=== PATIENT | male | born 1955 | race Caucasian/White ===

== ENCOUNTER 2021-05-22 15:30 | Emergency (ER) | payer OTHER ==
[~2021-05-22] VITALS: Ht 188 cm; Wt 104.3 kg
[~2021-05-22 15:30] MED LIST: ALPR.5 PO; AMLO10 PO; ATEN25 PO; ATOR20 PO; Aspir 8181 MG PO; GABA300 PO; HYDACE10B PO; HYDPAM25 PO; Hydrochlorothia25 MG PO; K-Dur20 MEQ PO; LEVSOD50 PO; LISI20 PO; NAPR250 PO; Novolog100 UNIT/1; Prozac40 MG PO; TRAZ100 PO; ZESTORETIC 20-1 EAC1 PO
[2021-05-22 15:59] LABS: BASOPHILS PERCENT AUTO 1 % (0-2); EOSINOPHILS ABSOLUTE AUTO 0.12 K/mm3 (0.00-0.68); EOSINOPHILS PERCENT AUTO 1 % (0-6); Hematocrit 37.3 % (37.0-53.0); Hemoglobin 13.2 g/dL (13.5-17.5); IMMATURE GRAN ABSOLUTE AUTO 0.03 K/mm3 (0.00-0.10); IMMATURE GRAN PERCENT AUTO 0 % (0-1); LYMPHOCYTES PERCENT AUTO 16 % (21-46); MONOCYTES ABSOLUTE AUTO 1.04 K/mm3 (0.16-1.47); MONOCYTES PERCENT AUTO 12 % (4-13); Mean Corpuscular HGB 28.1 pg (26.0-34.0); Mean Corpuscular HGB Conc 35.4 g/dL (31.5-36.5); Mean Corpuscular Volume 79 fL (80-100); Mean Platelet Volume 12.6 fL (9.1-12.4); NEUTROPHILS ABSOLUTE AUTO 6.09 K/mm3 (1.96-9.15); NEUTROPHILS PERCENT AUTO 70 % (41-73); Platelet Count 288 K/mm3 (150-400); RDW Coefficient Variation 13.4 % (11.7-14.2); RDW Standard Deviation 38.9 fL (35.1-46.3); White Blood Cell Count 8.78 K/mm3 (4.00-11.30)
[2021-05-22 16:15] LABS: Albumin, Blood 4.2 g/dL (3.4-5.0); Albumin/Globulin Ratio 1.1 (0.8-1.8); Bilirubin, Total 1.1 mg/dL (0.1-1.0); Bun/Creatinine Ratio 14.4 (12.0-20.0); Calcium, Blood 8.9 mg/dL (8.5-10.1); Creatinine, Blood 1.6 mg/dL (0.60-1.20); Globulin, Blood 3.9 g/dL (2.2-4.0); Potassium, Blood 2.6 mmol/L (3.5-5.5); Total Protein, Blood 8.1 g/dL (6.4-8.2)
[2021-05-22 17:12] LABS: Appearance, Urine Clear (Clear); Bilirubin, Urine Neg (Neg); Blood, Urine Neg (Neg); Color, Urine Yellow (P-Yellow); Glucose Qualitative, Urine Neg (Neg); Ketones, Urine Neg (Neg); Leukocyte Esterase, Urine Neg (Neg); Nitrite, Urine Neg (Neg); Protein, Urine Neg (Neg); Urobilinogen, Urine NORM (Normal)
[2021-05-22] MEDS ORDERED: POTA20PAC PO (20:30)
== END 2021-05-22 20:53 | disposition home or self-care (01) ==
LOC: ER 15:30
PROVIDERS: Emergency Medicine
DX: R07.9 Chest pain, unspecified (principal); E87.6 Hypokalemia; R10.9 Unspecified abdominal pain; E11.9 Type 2 diabetes mellitus without complications; I10 Essential (primary) hypertension; E03.9 Hypothyroidism, unspecified; F17.210 Nicotine dependence, cigarettes, uncomplicated; Z79.82 Long term (current) use of aspirin
CPT/HCPCS: 74176; 76705; 80053; 81003; 82947; 83690; 85025; 96374; 99285-25; A9270; J2405; J3010

== ENCOUNTER 2021-05-27 23:07 | Emergency (ER) | payer OTHER ==
[~2021-05-27] VITALS: Ht 188 cm; Wt 104.3 kg
[~2021-05-27 23:07] MED LIST changes: +POTA20PAC PO
[2021-05-28 00:36] LABS: BASOPHILS ABSOLUTE AUTO 0.05 K/mm3 (0.00-0.23); BASOPHILS PERCENT AUTO 0 % (0-2); EOSINOPHILS PERCENT AUTO 0 % (0-6); Hematocrit 36.8 % (37.0-53.0); Hemoglobin 13.5 g/dL (13.5-17.5); IMMATURE GRAN ABSOLUTE AUTO 0.03 K/mm3 (0.00-0.10); IMMATURE GRAN PERCENT AUTO 0 % (0-1); LYMPHOCYTES ABSOLUTE AUTO 0.83 K/mm3 (0.84-5.20); LYMPHOCYTES PERCENT AUTO 6 % (21-46); MONOCYTES ABSOLUTE AUTO 1.01 K/mm3 (0.16-1.47); MONOCYTES PERCENT AUTO 7 % (4-13); Mean Corpuscular HGB 28.7 pg (26.0-34.0); Mean Corpuscular HGB Conc 36.7 g/dL (31.5-36.5); Mean Corpuscular Volume 78 fL (80-100); Mean Platelet Volume 11.8 fL (9.1-12.4); NEUTROPHILS ABSOLUTE AUTO 11.96 K/mm3 (1.96-9.15); NEUTROPHILS PERCENT AUTO 86 % (41-73); Platelet Count 340 K/mm3 (150-400); RDW Coefficient Variation 12.9 % (11.7-14.2); RDW Standard Deviation 36.7 fL (35.1-46.3); White Blood Cell Count 13.88 K/mm3 (4.00-11.30)
[2021-05-28 00:57] LABS: Alanine Aminotransfer (ALT/SGP 41 U/L (12-78); Albumin, Blood 4.4 g/dL (3.4-5.0); Albumin/Globulin Ratio 1.2 (0.8-1.8); Alk Phos 77 U/L (50-136); Anion Gap 9 mmol/L (6-16); Aspartate Aminotrans (AST/SGOT 27 U/L (12-37); Bilirubin, Total 1.3 mg/dL (0.1-1.0); Blood Urea Nitrogen 11 mg/dL (8-24); CO2, Blood 21 mmol/L (21-32); Calcium, Blood 8.8 mg/dL (8.5-10.1); Chloride, Blood 95 mmol/L (98-108); Creatinine, Blood 1.22 mg/dL (0.60-1.20); Globulin, Blood 3.7 g/dL (2.2-4.0); Glomerular Filtration Rate >60 (60-); Glucose, Blood 100 mg/dL (70-99); Potassium, Blood 2.8 mmol/L (3.5-5.5); Sodium, Blood 125 mmol/L (136-145); Total Protein, Blood 8.1 g/dL (6.4-8.2)
[2021-05-28 04:24] LABS: Source, Urine Clean Catch
[2021-05-28 04:26] LABS: Bilirubin, Urine Neg (Neg); Blood, Urine 2+ (Neg); Glucose Qualitative, Urine Neg (Neg); Ketones, Urine Neg (Neg); Leukocyte Esterase, Urine Neg (Neg); Nitrite, Urine Neg (Neg); Protein, Urine 2+ (Neg); Urobilinogen, Urine NORM (Normal)
[2021-05-28 04:34] LABS: Appearance, Urine Clear (Clear); Color, Urine Yellow (P-Yellow)
[2021-05-28 04:35] LABS: Bacteria Not Seen /hpf; Red Blood Cells, Urine 0-2 /hpf (0-2); Squamous Epithelial Cells Not Seen /hpf (Few); White Blood Cells, Urine Rare /hpf (0-5)
[2021-05-28 05:06] LABS: Troponin I <0.015 ng/mL (0.000-0.040)
[2021-05-28] MEDS ORDERED: Pepcid20 MG PO (06:57)
== END 2021-05-28 09:28 | disposition home or self-care (01) ==
LOC: ER 23:07
PROVIDERS: Emergency Medicine
DX: K21.00 Gastro-esophageal reflux disease with esophagitis, without bleeding (principal); E87.6 Hypokalemia; Z79.82 Long term (current) use of aspirin; Z79.84 Long term (current) use of oral hypoglycemic drugs
CPT/HCPCS: 36415; 74177; 80053; 81001; 82947; 83690; 83735; 84132; 84484; 85025; 93005; 93010; 96374; 96375; 96376; 99284-25; A9270; J1170; J2270; J2405; J7120; Q9967

== ENCOUNTER 2022-04-29 13:15 | Observation (INO) | payer OTHER ==
[~2022-04-29] VITALS: Ht 188 cm; Wt 105.4 kg
[~2022-04-29 13:15] MED LIST changes: +NOVOLOG100 UNIT/3; -Novolog100 UNIT/1; +Pepcid20 MG PO
[2022-04-29 15:41] LABS: BASOPHILS ABSOLUTE AUTO 0.08 K/mm3 (0.00-0.23); BASOPHILS PERCENT AUTO 1 % (0-2); EOSINOPHILS ABSOLUTE AUTO 0.01 K/mm3 (0.00-0.68); EOSINOPHILS PERCENT AUTO 0 % (0-6); Hematocrit 41.7 % (37.0-53.0); Hemoglobin 14.3 g/dL (13.5-17.5); IMMATURE GRAN ABSOLUTE AUTO 0.09 K/mm3 (0.00-0.10); IMMATURE GRAN PERCENT AUTO 1 % (0-1); LYMPHOCYTES ABSOLUTE AUTO 0.94 K/mm3 (0.84-5.20); LYMPHOCYTES PERCENT AUTO 6 % (21-46); MONOCYTES ABSOLUTE AUTO 0.76 K/mm3 (0.16-1.47); MONOCYTES PERCENT AUTO 5 % (4-13); Mean Corpuscular HGB 29.1 pg (26.0-34.0); Mean Corpuscular HGB Conc 34.3 g/dL (31.5-36.5); Mean Corpuscular Volume 85 fL (80-100); NEUTROPHILS ABSOLUTE AUTO 13.43 K/mm3 (1.96-9.15); NEUTROPHILS PERCENT AUTO 88 % (41-73); RDW Coefficient Variation 12.6 % (11.7-14.2); RDW Standard Deviation 38.8 fL (35.1-46.3); Red Blood Cell Count 4.91 M/mm3 (4.30-5.90); White Blood Cell Count 15.31 K/mm3 (4.00-11.30)
[2022-04-29 15:49] LABS: Albumin, Blood 4.3 g/dL (3.4-5.0); Albumin/Globulin Ratio 1.1 (0.8-1.8); Bilirubin, Total 1.9 mg/dL (0.1-1.0); Bun/Creatinine Ratio 11.7 (12.0-20.0); Calcium, Blood 9.2 mg/dL (8.5-10.1); Creatinine, Blood 1.37 mg/dL (0.60-1.20); Potassium, Blood 3.6 mmol/L (3.5-5.5); Total Protein, Blood 8.3 g/dL (6.4-8.2)
[2022-04-29 16:25] LABS: Source, Urine Clean Catch
[2022-04-29 16:28] LABS: Mean Platelet Volume 12.2 fL (9.1-12.4); Platelet Count 243 K/mm3 (150-400)
[2022-04-29 16:29] LABS: Appearance, Urine Clear (Clear); Bilirubin, Urine Neg (Neg); Blood, Urine 1+ (Neg); Color, Urine Amber (P-Yellow); Glucose Qualitative, Urine Neg (Neg); Ketones, Urine Neg (Neg); Leukocyte Esterase, Urine Neg (Neg); Nitrite, Urine Neg (Neg); Protein, Urine 3+ (Neg); Urobilinogen, Urine NORM (Normal)
[2022-04-29 17:16] LABS: Bacteria Few /hpf; Squamous Epithelial Cells Rare /hpf (Few); White Blood Cells, Urine 0-2 /hpf (0-5)
--- NOTE | 2022-04-29 19:01 | NUR ---
ADMISSION: REPORT RECIEVED FROM ED RN. PT TO UNIT AT ABOUT 1845. PT IS A/O, VSS. PT DENIES NEED FOR PAIN MED AT THIS TIME. PT AMBULATORY TO THE BATHROOM AND VOIDED. REPORT PASSED TO NOC RN.
--- NOTE | 2022-04-29 22:03 | NUR ---
INSULIN PUMP PT HAS AN INSULIN PUMP THAT ADMINISTERS 1.5 UNITS EVERY HOUR. PT HAS TURNED OFF HIS INSULIN PUMP AT THIS TIME IN ANTICIPATION FOR SURGERY. HE IS TO BE NPO AT MIDNIGHT. PT HAS HAD VERY MINIMAL TO EAT, BG 109.
--- NOTE | 2022-04-30 03:33 | NUR ---
SHIFT SUMMARY PT CHANGE OF SHIFT ADMIT FOR APPENDICITIS. PT HAS HAD PAIN OFF AND ON T/O THE NIGHT. PAIN AVERAGES 8/10. PT STATES THAT A COMFORTABLE LEVEL OF PAIN FOR HIM IS 4/10. PT MEDICATED WITH FENTANYL WITH AFFECT. PT REPORTS MILD NAUSEA BUT HAS HAD NO VOMITTING, ABLE TO KEEP DOWN LIQUIDS. HE HAS BEEN AMBULATING TO THE BATHROOM INDEPENDENTLY AND HAS BEEN VOIDING WITHOUT DIFFICULTY. PT AFEBRILE AT THIS TIME. PT HAS HAD SOME SOB WITH AMBULATION D/T THE PAIN. PT NPO SINCE MIDNIGHT FOR PROCEDURE TODAY. ADMISSION COMPLETE. BED IN LOWEST POSITION, CALL LIGHT WITHIN REACH.
[2022-04-30 05:02] LABS: Hematocrit 38.3 % (37.0-53.0); Hemoglobin 12.9 g/dL (13.5-17.5); Mean Corpuscular HGB 29.3 pg (26.0-34.0); Mean Corpuscular HGB Conc 33.7 g/dL (31.5-36.5); Mean Corpuscular Volume 87 fL (80-100); Mean Platelet Volume 11.7 fL (9.1-12.4); Platelet Count 208 K/mm3 (150-400); RDW Standard Deviation 40.8 fL (35.1-46.3); White Blood Cell Count 18.63 K/mm3 (4.00-11.30)
[2022-04-30 05:32] LABS: Bun/Creatinine Ratio 12.6 (12.0-20.0); Calcium, Blood 8.6 mg/dL (8.5-10.1); Creatinine, Blood 1.43 mg/dL (0.60-1.20)
[2022-04-30 05:38] LABS: BAND PERCENT MAN 12 % (0-8); BASOPHILS PERCENT MAN 0 % (0-2); EOSINOPHILS PERCENT MAN 0 % (0-6); LYMPHOCYTES ABSOLUTE MAN 0.74 K/mm3 (0.84-5.20); LYMPHOCYTES PERCENT MAN 4 % (21-46); MONOCYTES ABSOLUTE MAN 0.93 K/mm3 (0.16-1.47); MONOCYTES PERCENT MAN 5 % (4-13); NEUTROPHILS ABSOLUTE MAN 16.95 K/mm3 (1.96-9.15); SEG NEUTROPHILS PERCENT MAN 79 % (41-73); TOTAL CELLS COUNTED 100
[2022-04-30] MEDS ORDERED: CARV25 PO (05:43)
--- NOTE | 2022-04-30 06:15 | NUR ---
BG 350 PT BG 350 THIS AM. PT TURNED OFF HIS INSULIN PUMP IN ANTICIPATION FOR SURGERY YESTERDAY EVENING AROUND 2129. PT WAS A CHANGE OF SHIFT ADMIT, WAS NOT AWARE OF INSULIN PUMP AND THAT HE HAD IT ON UNTIL PT MENTIONED IT. WHEN HE TURNED OF THIS PUMP IS WAS CONTROLLED AT 109. THIS AM WITH LAB DRAW IT WAS 350 DR. MARTINEZ NOTIFIED OF PT INSULIN PUMP AND HIS BG OF 350. HE ORDERED NOVOLOG LOW SS ACHS. HE DID NOT ORDER FOR ME TO ADMINISTER A DOSE NOW. ORDERS TO BE PLACED. PT INSULIN PUMP REMAINS OFF AT THIS TIME. PT REMAINS NPO.
--- NOTE | 2022-04-30 06:20 | NUR ---
INSULIN ORDERS PLACED FOR INSULIN ACHS LOW SS. WHEN PT LEARNED THAT HIS BG WAS 350 HE HOOKED HIMSELF UP TO THE INSULIN PUMP AGAIN AND ADMINISTERED 1.5 UNITS AROUND 0545. PT INSTRUCTED TO TURN INSULIN PUMP OFF AND THAT WE WOULD CLOSELY MONITOR HIS SUGARS AND ADMINISTER INSULIN UNDER DOCTORS ORDERS. PT IS AGREEABLE TO THIS PLAN AND HAS REMOVED HIS INSULIN PUMP AND PLACED IN HIS BELONGINGS.
[2022-04-30 06:46] LABS: Influenza A, PCR NEGATIVE (NEGATIVE); Influenza B, PCR NEGATIVE (NEGATIVE); Resp Syncytial Virus, PCR NEGATIVE (NEGATIVE); SARS-Cov-2 (COVID-19) PCR, MMC NEGATIVE (NEGATIVE)
--- NOTE | 2022-04-30 12:53 | NUR ---
TO PACU TO GET READY TO GO TO OR VSS WNL PT DENIES PAIN OR NAUSEA AT THIS TIME
--- NOTE | 2022-04-30 13:51 | NUR ---
04/30/22 1351 Candiad Bonner PT ON SCHEDULED ANTIBIOTICS AND RECIEVED PRIOR TO ARRIVAL TO OR.
--- NOTE | 2022-04-30 17:30 | NUR ---
SHIFT SUMMARY PT A&OX4, VSS/RA, CBGS PER EMAR (INSULIN PUMP TURNED OFF/ CARTRIDGE IN PATIENT'S PERSONAL ITEMS), STAR PO CLD, VOIDING WELL/BRP/URINAL, AMB SBA. S/P LAP APPY 3 STERI STRIPS WITH GAUZE/BANDAID DRY/INTACT, EDU PT TO SPLINT ABD.18G LAC INFUSING IVF/ABX PER EMAR. PAIN MANAGED WITH FENT 25 MCGS. WILL REPORT TO ONCOMING NOC RN.
--- NOTE | 2022-04-30 21:33 | NUR ---
INSULIN/BG PT BG WAS 309 WITH HS CHECK. PT ON LOW SLIDING SCALE BUT WAS REQUESTING 10 UNITS OF THE FAST ACTING INSTEAD OF THE 2 UNITS THAT WAS ORDERED. PT ALSO ORDERED TO RECEIVE 36 UNITS OF LONG ACTING AT HS. CALLED DR. HINES TO NOTIFY HIM OF PT BG AND HIS REQUEST TO TAKE 10 UNITS, MORE THAN THE ORDERED AMOUNT. DR. HINES CHANGED PT FROM A LOW SS TO A HIGH SS. HE STATES OK TO GIVE 6 UNITS OF FAST ACTING FOR TONIGHT AND CONTINUE WITH HIGH SLIDING SCALE PARAMETERS FOR FUTURE DOSING. PT WOULD LIKE TO HAVE HIS BG CHECKED AT MIDNIGHT. DR. HINES MADE AWARE OF THIS WELL. HE STATES IF BG IS HIGH AT MIDNIGHT TO NOT NOTIFY HIM AND THAT HE WILL ADDRESS DAYTSHIFT. PT MEDICATED PER ORDERS.
--- NOTE | 2022-05-01 03:46 | NUR ---
SHIFT SUMMARY PT POD O APPY, HE HAS DONE WELL OVERNIGHT AND HAS NOT COMPLAINED OF PAIN. LAP SITE DRESSINGS INTACT. DRESSING BELOW UMBILICUS WITH SOME SLIGHT OOZING REINFORCED WITH BANDAGE. PT SWITCHED TO HIGH SLIDING SCALE INSULIN ORDERS PER DR HINES FOR BETTER CONTROL OF BG. IV ANTIBIOTICS CONTINUED ORDERED. PT INDEPENDENT IN THE ROOM MAKES NEEDS KNOWN. BED IN LOWEST POSITION, CALL LIGHT WITHIN REACH.
[2022-05-01 04:54] LABS: BASOPHILS ABSOLUTE AUTO 0.01 K/mm3 (0.00-0.23); BASOPHILS PERCENT AUTO 0 % (0-2); EOSINOPHILS PERCENT AUTO 0 % (0-6); Hemoglobin 11.7 g/dL (13.5-17.5); IMMATURE GRAN ABSOLUTE AUTO 0.08 K/mm3 (0.00-0.10); IMMATURE GRAN PERCENT AUTO 1 % (0-1); LYMPHOCYTES ABSOLUTE AUTO 0.53 K/mm3 (0.84-5.20); LYMPHOCYTES PERCENT AUTO 4 % (21-46); MONOCYTES PERCENT AUTO 5 % (4-13); Mean Corpuscular HGB Conc 33.4 g/dL (31.5-36.5); Mean Corpuscular Volume 87 fL (80-100); Mean Platelet Volume 12.5 fL (9.1-12.4); NEUTROPHILS ABSOLUTE AUTO 13.18 K/mm3 (1.96-9.15); NEUTROPHILS PERCENT AUTO 91 % (41-73); Platelet Count 188 K/mm3 (150-400); RDW Coefficient Variation 13.1 % (11.7-14.2); RDW Standard Deviation 41.1 fL (35.1-46.3); Red Blood Cell Count 4.04 M/mm3 (4.30-5.90)
[2022-05-01 05:17] LABS: Bun/Creatinine Ratio 18.6 (12.0-20.0); Calcium, Blood 8.5 mg/dL (8.5-10.1); Creatinine, Blood 1.29 mg/dL (0.60-1.20); Potassium, Blood 3.7 mmol/L (3.5-5.5)
[2022-05-01] MEDS ORDERED: AMLO10 PO (06:29)
--- NOTE | 2022-05-01 15:44 | NUR ---
SHIFT SUMMARY PT A&OX4, VSS/RA, CBG HIGH SS + CARB COUNT COVERAGE. POD1 LAP APPY, 3 STERIS/ UMBILICUS WITH GAUZE AND BANDAID, DRY/INTACT. STAR PO ADA FULL LIQUID DIET. VOIDING WELL. AMBULATING INDEPENDENTLY IN ROOM, TO BRP, UP TO CHAIR T/O SHIFT. IV 18G LAC/SL, ABX PER EMAR. WILL REPORT TO ONCOMING NOC OZIEL.
[2022-05-02 04:20] LABS: Albumin, Blood 3.1 g/dL (3.4-5.0); Anion Gap 10 mmol/L (6-16); Blood Urea Nitrogen 24 mg/dL (8-24); Bun/Creatinine Ratio 19.4 (12.0-20.0); CO2, Blood 18 mmol/L (21-32); Calcium, Blood 8.5 mg/dL (8.5-10.1); Chloride, Blood 105 mmol/L (98-108); Creatinine, Blood 1.24 mg/dL (0.60-1.20); Glomerular Filtration Rate 65 (60-); Glucose, Blood 338 mg/dL (70-99); Phosphorus, Blood 1.9 mg/dL (2.5-4.9); Potassium, Blood 3.4 mmol/L (3.5-5.5); Sodium, Blood 133 mmol/L (136-145)
--- NOTE | 2022-05-02 06:11 | NUR ---
SUMMARY PT CBG 209 TONIGHT.PT PASSING FLATUS.NO C/O NAUSEA .TOLERATING PO.VOIDING WITHOUT DIFF.DENIES NEED FOR PAIN MEDS.ANXIOUS FOR POSSIBLE D/C HOME TODAY.
[2022-05-02] MEDS ORDERED: AMOCLA875 PO (09:47)
[2022-05-02] MEDS ORDERED: HYDROCODONE-AC1 EA10 PO (09:48)
--- NOTE | 2022-05-02 11:45 | NUR ---
PT DISCHARGED HOME FROM UNIT AT APROX 1130. PT GIVEN WRITTEN AND VERBAL DC INSTRUCTIONS AND VERBALIZED UNDERSTANDING OF THESE INSTRUCTIONS. IV REMOVED. TOLERATED WELL. DECLINED WC TO TAXI.
== END 2022-05-02 11:30 | disposition home or self-care (01) ==
LOC: ER 13:15 → SURS 13:16
PROVIDERS: Physician Assistant; ADMIT Surgery
PROC: 0DTJ4ZZ Resection of Appendix, Percutaneous Endoscopic Approach (ICD-10-PCS; principal; 2022-04-30 11:45)
DX: K35.33 Acute appendicitis with perforation, localized peritonitis, and gangrene, with abscess (principal); E78.5 Hyperlipidemia, unspecified; N17.9 Acute kidney failure, unspecified; E10.40 Type 1 diabetes mellitus with diabetic neuropathy, unspecified; E78.00 Pure hypercholesterolemia, unspecified; I10 Essential (primary) hypertension; Z96.41 Presence of insulin pump (external) (internal); Z87.891 Personal history of nicotine dependence; Z20.822 Contact with and (suspected) exposure to COVID-19
CPT/HCPCS: 0241U; 36415; 74177; 80048; 80053; 80069; 81001; 82947; 83690; 85025; 93005; 93010; 96365; 96366; 96374; 96375; 96376; 99285; A9270; G0378; J0295; J1100; J1170; J1815; J2250; J2370; J2405; J2704; J3010; J7030; J7040; J7120; Q9967

== ENCOUNTER 2022-06-08 12:56 | Emergency (ER) | payer OTHER ==
[~2022-06-08] VITALS: Ht 188 cm; Wt 104.3 kg
[~2022-06-08 12:56] MED LIST changes: +AMOCLA875 PO; +CARV25 PO; +HYDROCODONE-AC1 EA10 PO
[2022-06-08 13:32] LABS: BASOPHILS ABSOLUTE AUTO 0.12 K/mm3 (0.00-0.23); BASOPHILS PERCENT AUTO 1 % (0-2); EOSINOPHILS ABSOLUTE AUTO 0.01 K/mm3 (0.00-0.68); EOSINOPHILS PERCENT AUTO 0 % (0-6); Hematocrit 39.7 % (37.0-53.0); Hemoglobin 13.7 g/dL (13.5-17.5); IMMATURE GRAN ABSOLUTE AUTO 0.05 K/mm3 (0.00-0.10); IMMATURE GRAN PERCENT AUTO 0 % (0-1); LYMPHOCYTES ABSOLUTE AUTO 1.08 K/mm3 (0.84-5.20); LYMPHOCYTES PERCENT AUTO 8 % (21-46); MONOCYTES ABSOLUTE AUTO 0.69 K/mm3 (0.16-1.47); MONOCYTES PERCENT AUTO 5 % (4-13); Mean Corpuscular HGB 28.7 pg (26.0-34.0); Mean Corpuscular HGB Conc 34.5 g/dL (31.5-36.5); Mean Corpuscular Volume 83 fL (80-100); NEUTROPHILS ABSOLUTE AUTO 11.37 K/mm3 (1.96-9.15); NEUTROPHILS PERCENT AUTO 85 % (41-73); Platelet Count 318 K/mm3 (150-400); RDW Coefficient Variation 12.6 % (11.7-14.2); RDW Standard Deviation 38.4 fL (35.1-46.3); Red Blood Cell Count 4.78 M/mm3 (4.30-5.90); White Blood Cell Count 13.32 K/mm3 (4.00-11.30)
[2022-06-08 14:05] LABS: Albumin, Blood 4.2 g/dL (3.4-5.0); Albumin/Globulin Ratio 1.1 (0.8-1.8); Bilirubin, Total 1.5 mg/dL (0.1-1.0); Bun/Creatinine Ratio 15.7 (12.0-20.0); Creatinine, Blood 1.08 mg/dL (0.60-1.20); Globulin, Blood 3.7 g/dL (2.2-4.0); Potassium, Blood 3.8 mmol/L (3.5-5.5); Total Protein, Blood 7.9 g/dL (6.4-8.2)
== END 2022-06-08 16:35 | disposition home or self-care (01) ==
LOC: ER 12:56
PROVIDERS: Emergency Medicine
DX: R07.89 Other chest pain (principal); E11.40 Type 2 diabetes mellitus with diabetic neuropathy, unspecified; I10 Essential (primary) hypertension; Z79.899 Other long term (current) drug therapy; Z79.4 Long term (current) use of insulin
CPT/HCPCS: 71046; 80053; 82947; 84484; 85025

== ENCOUNTER 2023-04-01 14:02 | Emergency (ER) | payer OTHER ==
[~2023-04-01] VITALS: Ht 188 cm; Wt 82.5 kg
[2023-04-01 15:18] LABS: Source, Urine Clean Catch
[2023-04-01 15:22] LABS: Mean Corpuscular Volume 83 fL (80-100)
[2023-04-01 15:23] LABS: Appearance, Urine Clear (Clear); Bilirubin, Urine Neg (Neg); Blood, Urine Neg (Neg); Color, Urine Yellow (P-Yellow); Glucose Qualitative, Urine Neg (Neg); Ketones, Urine Neg (Neg); Leukocyte Esterase, Urine Neg (Neg); Nitrite, Urine Neg (Neg); Protein, Urine Neg (Neg); Specific Gravity, Urine 1.005 (1.003-1.022); Urobilinogen, Urine NORM (Normal)
[2023-04-01 15:31] LABS: Hematocrit 37.8 % (37.0-53.0); Hemoglobin 13.1 g/dL (13.5-17.5); Mean Corpuscular HGB 28.9 pg (26.0-34.0); Mean Corpuscular HGB Conc 34.7 g/dL (31.5-36.5); Mean Platelet Volume 11.5 fL (9.1-12.4); Platelet Count 358 K/mm3 (150-400); RDW Coefficient Variation 13.4 % (11.7-14.2); Red Blood Cell Count 4.53 M/mm3 (4.30-5.90)
[2023-04-01 15:41] LABS: White Blood Cell Count 7.33 K/mm3 (4.00-11.30)
[2023-04-01 15:42] LABS: Alanine Aminotransfer (ALT/SGP 33 U/L (12-78); Albumin, Blood 3.8 g/dL (3.4-5.0); Alk Phos 80 U/L (50-136); Anion Gap 11 mmol/L (6-16); Aspartate Aminotrans (AST/SGOT 17 U/L (12-37); Bilirubin, Total 0.8 mg/dL (0.1-1.0); Blood Urea Nitrogen 14 mg/dL (8-24); CO2, Blood 16 mmol/L (21-32); Calcium, Blood 9.3 mg/dL (8.5-10.1); Chloride, Blood 113 mmol/L (98-108); Creatinine, Blood 1.08 mg/dL (0.60-1.20); Ethanol (Alcohol), Blood, Med <3 mg/dL; Globulin, Blood 3.7 g/dL (2.2-4.0); Glomerular Filtration Rate 76 (60-); Glucose, Blood 110 mg/dL (70-99); Potassium, Blood 2.9 mmol/L (3.5-5.5); Sodium, Blood 140 mmol/L (136-145); Total Protein, Blood 7.5 g/dL (6.4-8.2)
[2023-04-01 15:49] LABS: BAND PERCENT MAN 1 % (0-8); BASOPHILS ABSOLUTE MAN 0.07 K/mm3 (0.00-0.23); BASOPHILS PERCENT MAN 1 % (0-2); EOSINOPHILS PERCENT MAN 0 % (0-6); LYMPHOCYTES ABSOLUTE MAN 0.95 K/mm3 (0.84-5.20); LYMPHOCYTES PERCENT MAN 13 % (21-46); MONOCYTES ABSOLUTE MAN 0.43 K/mm3 (0.16-1.47); MONOCYTES PERCENT MAN 6 % (4-13); NEUTROPHILS ABSOLUTE MAN 5.86 K/mm3 (1.96-9.15); SEG NEUTROPHILS PERCENT MAN 79 % (41-73); TOTAL CELLS COUNTED 100
[2023-04-01 15:52] LABS: U Amphetamine Screen Not Detected; U Barbituate Screen Not Detected; U Benzodiazapine Screen Not Detected; U Cannabinoids Screen DETECTED; U Cocaine Screen Not Detected; U Methadone Screen Not Detected; U Methamphetamine Screen Not Detected; U Opiates Screen Not Detected; U Phencyclidine Screen Not Detected
[2023-04-01 15:53] LABS: U Buprenorphine Screen Not Detected; U Oxycodone Screen Not Detected; U Propoxyphene Screen Not Detected
[2023-04-01 16:15] LABS: Bicarbonate Venous 17.8 mmol/L (24.0-30.0); PCO2 Venous 32.5 mmHg (38-42); pH Blood Venous 7.33 (7.34-7.37)
[2023-04-01 16:17] LABS: Base Excess Venous -8.6 mmol/L
[2023-04-01 17:45] VITALS: BP 149/80
== END 2023-04-01 18:05 | disposition home or self-care (01) ==
LOC: ER 14:02
PROVIDERS: Emergency Medicine; Student in an Organized Health Care Education/Training Program
DX: R41.82 Altered mental status, unspecified (principal); E87.6 Hypokalemia; E11.9 Type 2 diabetes mellitus without complications; Z79.4 Long term (current) use of insulin; Z87.891 Personal history of nicotine dependence
CPT/HCPCS: 70450; 80053; 81003; 82140; 82803; 85025; 93005; 93010; 96365; 99285-25; A9270; G0480; J3480; J7030

== ENCOUNTER 2023-04-02 07:32 | Inpatient (IN) | payer OTHER ==
[~2023-04-02] VITALS: Ht 188 cm; Wt 96.0 kg
[~2023-04-02 07:32] MED LIST changes: +EUTHYROX50 MCG PO; -LEVSOD50 PO
[2023-04-02 08:15] LABS: BASOPHILS ABSOLUTE AUTO 0.09 K/mm3 (0.00-0.23); BASOPHILS PERCENT AUTO 1 % (0-2); EOSINOPHILS ABSOLUTE AUTO 0.02 K/mm3 (0.00-0.68); EOSINOPHILS PERCENT AUTO 0 % (0-6); Hematocrit 34.3 % (37.0-53.0); Hemoglobin 11.9 g/dL (13.5-17.5); IMMATURE GRAN ABSOLUTE AUTO 0.01 K/mm3 (0.00-0.10); IMMATURE GRAN PERCENT AUTO 0 % (0-1); LYMPHOCYTES ABSOLUTE AUTO 1.31 K/mm3 (0.84-5.20); LYMPHOCYTES PERCENT AUTO 20 % (21-46); MONOCYTES ABSOLUTE AUTO 0.87 K/mm3 (0.16-1.47); MONOCYTES PERCENT AUTO 13 % (4-13); Mean Corpuscular HGB Conc 34.7 g/dL (31.5-36.5); Mean Corpuscular Volume 84 fL (80-100); Mean Platelet Volume 11.6 fL (9.1-12.4); NEUTROPHILS ABSOLUTE AUTO 4.26 K/mm3 (1.96-9.15); NEUTROPHILS PERCENT AUTO 65 % (41-73); Platelet Count 300 K/mm3 (150-400); RDW Coefficient Variation 13.8 % (11.7-14.2); RDW Standard Deviation 41.9 fL (35.1-46.3); Red Blood Cell Count 4.11 M/mm3 (4.30-5.90); White Blood Cell Count 6.56 K/mm3 (4.00-11.30)
[2023-04-02 08:20] LABS: Albumin, Blood 3.4 g/dL (3.4-5.0); Albumin/Globulin Ratio 1.1 (0.8-1.8); Bilirubin, Total 0.7 mg/dL (0.1-1.0); Bun/Creatinine Ratio 10.8 (12.0-20.0); Calcium, Blood 8.5 mg/dL (8.5-10.1); Creatinine, Blood 1.02 mg/dL (0.60-1.20); Globulin, Blood 3.2 g/dL (2.2-4.0); Potassium, Blood 3.3 mmol/L (3.5-5.5); Total Protein, Blood 6.6 g/dL (6.4-8.2)
[2023-04-02 12:50] VITALS: BP 137/101
[2023-04-02 13:38] LABS: Magnesium, Blood 2.1 mg/dL (1.6-2.4); Phosphorus, Blood 1.6 mg/dL (2.5-4.9)
[2023-04-02 13:58] LABS: PCO2 Arterial 30.5 mmHg (35-45); PO2 Arterial 62 mmHg (80-100); pH Blood Arterial 7.33 (7.35-7.45)
--- NOTE | 2023-04-02 14:00 | NUR ---
PT PLEASANT COOP A/O X1. BECOMES QUITE ANX WHEN UNABLE ANSWER QUESTIONS. REASSURED REGULARLY. PT HAS INSULIN PUMP. WE DISCONNECTED, HE DOES NOT KNOW ANYTHING ABOUT IT. DOES NOT KNOW RATE, NOW TO CONTROL AT THIS TIME. FOR SAFEETY, COULD ADMIN INSULIN, PUMP DISCONNECTED. IT APPEARS RUNS AT 1.5 BUT PT UNABLE TO TELL ME WHAT MIGHT BE. PER HOUR OR MEAL OR WHAT. CBG 101. PT ABLE TO STAND WITH MIN ASST. H/R REG, NO MURMUR NOTED. TELE PLACED AND IS NSR. LUNGS CLEAR, RESP EASY, UNLABORED, UNTIL BECOMES ANX. VOIDS STAND AT URINAL. 1 MIN ASST TO BSC FOR SAFETY. BED IN LOW POSITION, CALL LITE IN REACH, BED ALARM ON FOR SAFETY
[2023-04-02 15:24] VITALS: BP 154/72
--- NOTE | 2023-04-02 17:36 | NUR ---
ADMIT PT. ARRIVED TO RM 332 AT 1200. PT. IS AOX2-3 (PERSON, PLACE), WHEN ASKED QUESTION PATIENT RESPONDS TO BEST OF KNOWLEDGE AND WILL REPORT THAT HE IS CONFUSED AND THAT IT IS MAKING HIM ANXIOUS OR SCARED. PATIENTS GAIT IS UNSTEADY. USING BEDSIDE COMMODE AT THIS TIME. INSULIN PUMP REMOVED BY CHARGE NURSE AND WILL HAVE GLUCOSE CHECKS AND INSULIN GIVEN PER ORDERS; SEE EMAR.
--- NOTE | 2023-04-02 18:53 | NUR ---
SHIFT SUMMARY. PT. VERY ANXIOUS AND CONFUSED. ANXIETY MEDICATED PER EMAR. PATIENT WILL REPORT WHEN HE IS CONFUSED AND STATES IT MAKES HIM ANXIOUS. PT. USING BEDSIDE COMMODE, FORGETFUL TO CALL AT TIMES. PT. IS PLEASENT AND COMPLIANT WITH CARE.
[2023-04-02 19:25] VITALS: BP 127/62
--- NOTE | 2023-04-02 19:26 | NUR ---
AGREE WITH STUDENT NOTES.
--- NOTE | 2023-04-02 19:32 | NUR ---
[address] CHA RE INSULIN PUMP AND CURRENT CBG. ORDERS FOR 5 UNITS SHORT AND [address] ORDERS. CHECK AGAIN IN HOUR. DONE
[2023-04-03 03:13] VITALS: BP 152/69
--- NOTE | 2023-04-03 05:16 | NUR ---
SHIFT SUMMERY, PT RESTING IN BED, PTS MENTATION SEEMS TO BE IMPROVING. PT CBGS ARE SLOWLY GETTING LOWER. PT STILL NOT ABLE REMEMBER MUCH ABOUT WHAT HAPPENED BEFOR HE CAME HERE TO BE ADMITTED. CALL LIGHT IN REACH.
[2023-04-03 06:29] LABS: BASOPHILS ABSOLUTE AUTO 0.07 K/mm3 (0.00-0.23); BASOPHILS PERCENT AUTO 1 % (0-2); EOSINOPHILS ABSOLUTE AUTO 0.25 K/mm3 (0.00-0.68); EOSINOPHILS PERCENT AUTO 5 % (0-6); Hematocrit 34.4 % (37.0-53.0); Hemoglobin 11.7 g/dL (13.5-17.5); IMMATURE GRAN ABSOLUTE AUTO 0.01 K/mm3 (0.00-0.10); IMMATURE GRAN PERCENT AUTO 0 % (0-1); LYMPHOCYTES ABSOLUTE AUTO 1.25 K/mm3 (0.84-5.20); LYMPHOCYTES PERCENT AUTO 23 % (21-46); MONOCYTES ABSOLUTE AUTO 0.88 K/mm3 (0.16-1.47); MONOCYTES PERCENT AUTO 16 % (4-13); Mean Corpuscular HGB 28.8 pg (26.0-34.0); Mean Corpuscular Volume 85 fL (80-100); Mean Platelet Volume 11.4 fL (9.1-12.4); NEUTROPHILS ABSOLUTE AUTO 2.96 K/mm3 (1.96-9.15); NEUTROPHILS PERCENT AUTO 55 % (41-73); Platelet Count 327 K/mm3 (150-400); RDW Coefficient Variation 13.6 % (11.7-14.2); RDW Standard Deviation 42.6 fL (35.1-46.3); Red Blood Cell Count 4.06 M/mm3 (4.30-5.90); White Blood Cell Count 5.42 K/mm3 (4.00-11.30)
[2023-04-03 06:51] LABS: Albumin, Blood 3.5 g/dL (3.4-5.0); Albumin/Globulin Ratio 1.1 (0.8-1.8); Bilirubin, Total 0.8 mg/dL (0.1-1.0); Bun/Creatinine Ratio 16.2 (12.0-20.0); Calcium, Blood 8.6 mg/dL (8.5-10.1); Creatinine, Blood 1.05 mg/dL (0.60-1.20); Globulin, Blood 3.2 g/dL (2.2-4.0); Potassium, Blood 3.4 mmol/L (3.5-5.5); Total Protein, Blood 6.7 g/dL (6.4-8.2)
[2023-04-03 07:22] VITALS: BP 154/65
[2023-04-03 14:41] VITALS: BP 150/69
--- NOTE | 2023-04-03 17:51 | NUR ---
PATIENT A/O X2-3 AND AWARE THAT HE IS CONFUSED. TOOK A SHOWER AND A FEW MINUTES LATER ASKED IF HE COULD TAKE A SHOWER BECAUSE HE HAD ALREADY FORGOTTEN ABOUT TAKING ONE. PATIENT IS INDEPENDENT IN ROOM AND ABLE TO MAKE NEEDS KNOWN. TYLENOL GIVEN X1 FOR A HEADACHE WITH GOOD RELIEF. VSS, ON RA. BLOOD SUGARS ELEVATED AND SEMGLEE INCREASED TO 20 UNITS DAILY. NO NEW CONCERNS THIS SHIFT.
[2023-04-03 19:34] VITALS: BP 135/62
[2023-04-04 03:54] VITALS: BP 169/72
[2023-04-04 05:27] VITALS: BP 155/68
--- NOTE | 2023-04-04 05:32 | NUR ---
SHIFT SUMMARY PT LAYING IN BED DURING BEDSIDE REPORT- PT DENIED PAIN- ASSESSMENT DONE- PT CONTINUES TO BE CONFUSED- PT ABLE TO REMEMBER SOME DETAILS OF WHEN HE WAS YOUNGED - PT UNABLE TO TELL THIS RN WHY HE WAS HERE OR ANY EVENTS RECENTLY- PT AMBULATES TO THE BATHROOM WITHOUT PROBLEMS- REPLACED IV BANDAGE, PT TOLERATED WELL- GAVE INSULIN AT HS PER ORDER 0400 PT HYPERTENSIVE AND REPORTED TO KNOTTING MACHINE OPERATOR THAT HE WAS HUNGRY AND THIRSTY- SPOT CHECK OF CBG= 38- GAVE SANDWICH, CHEESE JUICE- PT ATE ALL- CALL TO DR. RAMIREZ- NEW ORDER FOR 1/2 AMP D50 AND LANTUS CHANGED TO 15UNITS QPM - RECHECK OF BOTH BP AND CBG DONE- BP DECREASED AND CBG 203, BED LOW POSITION, CALL LIGHT WITHIN REACH
[2023-04-04 06:11] LABS: Albumin, Blood 3.2 g/dL (3.4-5.0); Anion Gap 9 mmol/L (6-16); Blood Urea Nitrogen 16 mg/dL (8-24); Bun/Creatinine Ratio 14.7 (12.0-20.0); CO2, Blood 18 mmol/L (21-32); Calcium, Blood 8.4 mg/dL (8.5-10.1); Chloride, Blood 114 mmol/L (98-108); Creatinine, Blood 1.09 mg/dL (0.60-1.20); Glomerular Filtration Rate 75 (60-); Glucose, Blood 212 mg/dL (70-99); Magnesium, Blood 2.1 mg/dL (1.6-2.4); Phosphorus, Blood 3.6 mg/dL (2.5-4.9); Potassium, Blood 3.2 mmol/L (3.5-5.5); Sodium, Blood 141 mmol/L (136-145); Thyroid Stimulating Hormone 0.152 uIU/mL (0.360-4.800); Thyroxine (T4) 7.2 ug/dL (4.5-12.1)
[2023-04-04 07:16] VITALS: BP 143/68
[2023-04-04 14:39] VITALS: BP 140/68
--- NOTE | 2023-04-04 14:54 | NUR ---
Patient is lying in bed and resting but easily awakens to the sound of his name. He immediately talks about the loss of his memory and his anxiety, surrounding this loss. He states that his peace and inspiration comes from solitude. "Solitude is how I cope," he says. He also states that he has pushed eveyone out of his life because people "cause" him stress. He denies any protestant ties but admits to praying to God in the quietness of his own house. He shares about his hopes that something medical that could discovered to help his memory return. I reinforce helpful attitudes and perspectives and provide therapeutic listening, anxiety containment and prayer. Patient responded well and showed signs of increased peace. I will continue to remain available to patient and family.
--- NOTE | 2023-04-04 14:54 | NUR ---
Case review facilitated per request of CC Director. Medical history, family matrix, and discharge planning proposal analyzed. 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 Thank you for this consult. Alex Caceres ThD, GRIS
--- NOTE | 2023-04-04 16:56 | NUR ---
PATIENT A/O TO SELF AND PLACE, UP INDEPENDENTLY IN ROOM. REMAINS FORGETFUL AND SCORED AT 17/30 ON HIS MMSE TODAY. PATIENT PLEAANT WITH CARE AND ABLE TO MAKE NEEDS KNOWN. REPORTED A HEADACHE TODAY AND TYLENOL GIVEN X2 THIS SHIFT TO TREAT. PATIENT FREQUENTLY ASKS FOR TYLENOL BECAUSE HE DOESN'T RECALL TAKING IT. TOLERATING DIET. BLOOD SUGARS IMPROVED THIS EVENING. ACHS BLOOD SUGARS, COVERAGE PER SS.
[2023-04-04 19:47] VITALS: BP 140/68
[2023-04-05 02:52] VITALS: BP 150/73
[2023-04-05 07:23] LABS: Hematocrit 34.8 % (37.0-53.0); Hemoglobin 11.8 g/dL (13.5-17.5); Mean Corpuscular HGB 29.1 pg (26.0-34.0); Mean Corpuscular HGB Conc 33.9 g/dL (31.5-36.5); Mean Corpuscular Volume 86 fL (80-100); Mean Platelet Volume 11.5 fL (9.1-12.4); Platelet Count 329 K/mm3 (150-400); RDW Coefficient Variation 13.7 % (11.7-14.2); RDW Standard Deviation 42.5 fL (35.1-46.3); Red Blood Cell Count 4.06 M/mm3 (4.30-5.90); White Blood Cell Count 6.25 K/mm3 (4.00-11.30)
[2023-04-05 07:32] VITALS: BP 164/74
[2023-04-05 08:11] LABS: Bun/Creatinine Ratio 13.3 (12.0-20.0); Calcium, Blood 8.7 mg/dL (8.5-10.1); Creatinine, Blood 1.05 mg/dL (0.60-1.20); Potassium, Blood 3.1 mmol/L (3.5-5.5)
[2023-04-05 15:53] VITALS: BP 143/68
[2023-04-05 19:11] VITALS: BP 132/69
--- NOTE | 2023-04-05 20:16 | NUR ---
SUMMARY- PT MADE PROGRESS TODAY, APPEARS MORE ALERT AND HAPPY THIS PM. STARTED OFF IN AM MORE CONFUSED AND ANXIOUS. AFTER HE TOOK A SHOWER AND TOOK HYDROXAZINE, PT STATES HE FELT LIKE A HUMAN. STILL HAVING STM DEFICIT, BUT LESS ANXIOUS. TOLERATING FOOD AND FLUIDS. UP OUT OF BED SBA STEADY ON FEET. CBG'S AC, COVERED WITH SSI. REPORTED TO NOC OZIEL DAVIS
[2023-04-06 05:19] LABS: Bun/Creatinine Ratio 14.2 (12.0-20.0); Calcium, Blood 8.4 mg/dL (8.5-10.1); Creatinine, Blood 1.06 mg/dL (0.60-1.20); Potassium, Blood 3.4 mmol/L (3.5-5.5)
--- NOTE | 2023-04-06 05:45 | NUR ---
SHIFT SUMMARY PT SITTING UP IN BED DURING BEDSIDE REPORT- PT CONTINUES TO BE FORGETFUL, PT HAD ANXIETY AT BEGINNING OF SHIFT- PT ANXIETY APPEARED TO BE LESS LATER IN SHIFT- PT SLEPT T/O SOME OF THE SHIFT, PT DENIES PAIN/SOB - PT INDEPENDENT IN ROOM, BED LOW POSITION, CALL LIGHT WITHIN REACH
[2023-04-06 07:16] VITALS: BP 151/70
[2023-04-06 15:15] VITALS: BP 179/64
[2023-04-06] MEDS ORDERED: METF500 PO (16:13)
[2023-04-06] MEDS ORDERED: LISI20 PO (16:13)
--- NOTE | 2023-04-06 16:45 | NUR ---
PT HAD A CBG OF 374 AND 5 UNITS WERE GIVEN OF INSULIN PER EMAR. DR KNOWLES WAS NOTFIED AND HE INSTRUCTED NO FUTHER INSULIN TO BE GIVEN AND MONITOR PT.
--- NOTE | 2023-04-06 17:33 | NUR ---
SHIFT ASSESSMENT PT. IS OF PLEASANT AFFECT, COOPERATIVE WITH CARE. INDEPENDENT IN ROOM. PT. CONFUSED; TRIED TO [place] WORKER HIS INSULIN PUMP THIS AFTERNOON AND REPORTED THAT HE "THINKS ITS OUT OF INSULIN", REORIENTED PT. THAT HE IS NOT USING HIS INSULIN PUMP WHILE IN THE HOSPITAL AND THAT WE WILL BE MONITORING HIS DIABETES DURING HIS HOSPITALIZATION. BED IS LOCKED AND IN LOWEST POSITION, CALL LIGHT IS WITHIN REACH. NO ACUTE CHANGES, WILL CONTINUE TO MONITOR. .
--- NOTE | 2023-04-06 17:35 | NUR ---
PT WAS 402 CBG TREATED WITH 5 UNITS INSULIN PER EMAR AND STARTED ON METFORMIN. DR KNOWLES WAS NOTFIED AND INSTRUCTED TO CONTINUE TO MONITOR.
--- NOTE | 2023-04-06 18:23 | NUR ---
PLEASE REFER TO STUDENT NOTE FOR SHIFT SUMMARY.
[2023-04-06 20:16] VITALS: BP 133/59
--- NOTE | 2023-04-06 21:15 | NUR ---
CALLED ABBY CHEMIST [employer]IC REGARDING PTS BS BEING 401, PER ABBY GIVE A 1 TIME DOSE OF 3UNITS OF HUMALOG.
--- NOTE | 2023-04-07 04:37 | NUR ---
SHIFT SUMMARY; NO ACUTE CHANGES OVERNIGHT. THE PT HAS BEEN SLEEPING IN BED FOR THE ENTIRETY OF THE NIGHT. THE PT IS AXO X4 W/ SHORT TERM MEMORY DEFICITS. THE PT IS INDEPENDENT IN THE ROOM. THE PT DENIES ANY PAIN, CHEST PAIN/PRESSURE, N/V OR SOB. TELE IS IN PLACE-NSR IN THE 50-60'S. CURRENTLY THE PT IS RESTING IN BED WITH THE BED IN THE LOWEST POSITION AND THE CALL LIGHT AT BEDSIDE.
[2023-04-07 05:52] VITALS: BP 152/65
[2023-04-07 07:39] VITALS: BP 159/70
--- NOTE | 2023-04-07 07:59 | NUR ---
NOTES: THIS RN CALLED LAB TO GET A CONFIRMATION LAB DRAW FOR CRITICAL BS VALUE REGISTERED ON THE MACHINE. THIS RN SPOKE TO MICHAELLE DIALLO, WARP STARTER REGARDING PATIENT BS. PER MICHEALLE TO WAIT FOR LAB DRAW CONFIRMATION BEFORE NOTIFYING HOSPITALIST.
[2023-04-07 08:01] LABS: Bun/Creatinine Ratio 19.3 (12.0-20.0); Calcium, Blood 8.3 mg/dL (8.5-10.1); Creatinine, Blood 1.09 mg/dL (0.60-1.20); Potassium, Blood 4.2 mmol/L (3.5-5.5)
[2023-04-07 09:06] LABS: Glucose, Blood 612 mg/dL (70-99)
[2023-04-07 11:10] LABS: Glucose, Blood 691 mg/dL (70-99)
[2023-04-07 13:10] LABS: Glucose, Blood 497 mg/dL (70-99)
[2023-04-07 13:15] LABS: Bun/Creatinine Ratio 24.4 (12.0-20.0); Calcium, Blood 8.4 mg/dL (8.5-10.1); Creatinine, Blood 0.98 mg/dL (0.60-1.20); Potassium, Blood 3.4 mmol/L (3.5-5.5)
[2023-04-07 15:57] VITALS: BP 135/54
--- NOTE | 2023-04-07 18:42 | NUR ---
SHIFT SUMMARY: PATIENT A&OX3. FORGETFULL AND SLIGHTLY CONFUSED. CALM, PLEASANT AND COOPERATIVE c CARE. PATIENT BS RANGES [phone] THIS SHIFT. RECEIVED INSULIN COVERAGE PER ORDER. PATIENT DENIES N/V, SOB, CP/PRESSURE AND GENERALIZED PAIN. ON TELE SR HR IN THE HIGH 60'S BPM. AMBULATES TO BATHROOM INDEPENDENTLY. EATING AND DRINKING WELL. RECEIVED SCHEDULED MED PER EMAR. VITAL SIGNS REVIEWED. PIV TO L WRIST SALINE LOCKED. CALL LIGHT IN REACH.
[2023-04-07 19:33] VITALS: BP 135/73
[2023-04-08 05:03] VITALS: BP 153/65
[2023-04-08 06:06] LABS: Bun/Creatinine Ratio 20.2 (12.0-20.0); Calcium, Blood 8.2 mg/dL (8.5-10.1); Creatinine, Blood 1.19 mg/dL (0.60-1.20); Potassium, Blood 4.4 mmol/L (3.5-5.5)
--- NOTE | 2023-04-08 07:01 | NUR ---
SHIFT SUMMARY: PATIENT A&O X 2-3, ABLE TO MAKE NEEDS KNOWN. HAS SOME CONFUSION AND NEEDS DIRECTING AT TIMES. HIS BS THIS SHIFT HAVE BEEN ELEVATED BETWEEN 400-500. HE DOES RECEIVE LONG ACTING INSULIN IN THE MORNING AND SLIDING SCALE WITH HIS MEALS. NO COMPLAINTS OF CHEST PAIN OR DISCOMFORT, FAIR APPETITE, BOWEL TONES PRESENT. AMBULATES SELF TO BATHROOM AND BACK. CALL LIGHT WITHIN REACH.
[2023-04-08 07:36] VITALS: BP 154/65
[2023-04-08 16:06] VITALS: BP 155/64
--- NOTE | 2023-04-08 17:20 | NUR ---
SHIFT SUMMARY: PT RESTING IN BED FOR MAJORITY OF SHIFT. A&O X3 WITH NOTED SHORT TERM MEMORY DEFICIT. PT COOPERATIVE AND PLEASANT WITH CARE, TOOK ALL SCHEDULED MEDICATIONS. PT UP TO BATHROOM AND BACK TO BED WITHOUT ASSISTANCE. PT SHOWERED PER HIS REQUEST. LEFT FA IV REMOVED DUE TO LEAKING AND REDNESS AROUND SITE. NEW 20G PLACED AT RIGHT HAND. BLOOD SUGARS TRENDING DOWN TODAY. BREAKFAST AND LUNCH BLOOD SUGARS >400, PROVIDER INFORMED, NO CHANGES TO INSULIN MADE. DINNER BLOOD GLUCOSE MEASURED AT 319. PT EATING 100% OF MEALS AND DRINKING WATER THROUGHOUT TODAY. NURSING WILL CONTINUE TO MONITOR.
[2023-04-08 19:16] VITALS: BP 146/72
[2023-04-09 04:54] VITALS: BP 153/68
--- NOTE | 2023-04-09 05:18 | NUR ---
SHIFT SUMMARY: A&O X 3, ABLE TO MAKE NEEDS KNOWN. CONFUSSION INCREASES THE DAY MOVES INTO EVENING. NO COMPLAINTS OF CHESTPAIN OR DISCOMFORT. RESPIRATIONS EVEN UNLABORED, NO COUGH. BOWEL TONES PRESENT ALL 4 QUADRANTS. AMBULATES SELF IN ROOM WITHOUT ASSISTANCE, USES BATHROOM. CALL LIGHT WITHIN REACH.
[2023-04-09 05:47] LABS: Bun/Creatinine Ratio 16.9 (12.0-20.0); Calcium, Blood 8.5 mg/dL (8.5-10.1); Creatinine, Blood 1.18 mg/dL (0.60-1.20); Potassium, Blood 4.1 mmol/L (3.5-5.5)
[2023-04-09 07:28] VITALS: BP 150/64
--- NOTE | 2023-04-09 11:39 | NUR ---
BLOOD SUGAR >400 BEDSIDE POC BLOOD GLUCOSE MEASURED AT 432 IN AM. NO OBJECTIVE SYMPTOMS NOTED AND NO SUBJECTIVE SYMPTOMS REPORTED BY PT. PROVIDER INFORMED AT 0730 AND INSTRUCTIONS TO CONTINUE WITH NEWLY INCREASED GLARGINE AND CURRENT LOW SLIDING SCALE FOR SHORT ACTING INSULIN.
--- NOTE | 2023-04-09 12:10 | NUR ---
BLOOD SUGAR 385 POC BEDSIDE MEASURED AT 385, PROVIDER INFORMED, NO NEW ORDERS RECEIVED. CONTINUE TO MONITOR. NO SUBJECTIVE SYMPTOMS REPORTED BY PT AND NO OBJECTIVE SYMPTOMS OBSERVED.
--- NOTE | 2023-04-09 12:15 | NUR ---
NOTE: CALLED DR KNOWLES AT AROUND 1210 TO CLARIFY INSULIN COVERAGE OF 7.5 UNIT WITH MEAL, PEN WOULD NOT ALLOWED TO DIAL 0.5 UNIT. RECEIVED ORDER TO GIVE 7 UNIT OF INSULIN WITH MEALS.
[2023-04-09 15:18] VITALS: BP 163/71
--- NOTE | 2023-04-09 16:29 | NUR ---
SHIFT SUMMARY: PT RESTING IN BED FOR MAJORITY OF THIS SHIFT. PT INDEPENDENTLY MOVING AROUND ROOM AND TO BATHROOM. NO REPORTS OF PAIN, SOB, NAUSEA, OR CP. PT COOPERATIVE WITH CARE WITH FLAT AFFECT. PT FORGETFUL AND QUESTIONS HIS CURRENT HOSPITALIZATION, "I CAN MANAGE MY BLOOD SUGARS AT HOME BETTER THAN YOU CAN HERE." PT COUNSELED ON CONCERN FOR HIS HEALTH WITH SELF MANAGEMENT OF INSULIN PRODUCTS WITH HIS HISTORY OF MEMORY PROBLEMS. "I FORGOT THAT I FORGET" AND EXPRESSES UNDERSTANDING OF HIS CURRENT HOSPITALIZATION. BLOOD SUGARS ELEVATED AT >400. LONG ACTING INSULIN INCREASED FROM 15 UNITS TO 20 AND SHORTACTING INCREASED FOR POST MEAL DOSE. NURSING WILL CONTINUE TO MONITOR.
--- NOTE | 2023-04-09 17:02 | NUR ---
BLOOD SUGARS PT DINNER BLOOD SUGAR 274
[2023-04-09 20:24] VITALS: BP 138/67
[2023-04-10 02:51] VITALS: BP 147/66
--- NOTE | 2023-04-10 04:55 | NUR ---
FITTER MACHINIST SUMMARY VSS. SHORT TERM MEMORY CONTINUES TO BE INTRMITTENT. INTERMITTENT VERBAL CUES AND REDIRECTION. BLOOD GLUCOSE LEVELS MONIORED. MID 200'S THIS SHIFT. MED TELE SR AT 75. HAS BEEN RESTING QUIETLY WITH FEW INERRUPTIONS. NO NOTED S/S ACUTE DISTRESS. CALL LIGHT IN REACH. WILL CONTINUE TO MONITOR
[2023-04-10 06:28] LABS: Bun/Creatinine Ratio 15.4 (12.0-20.0); Creatinine, Blood 1.17 mg/dL (0.60-1.20); Potassium, Blood 3.8 mmol/L (3.5-5.5)
[2023-04-10 07:37] VITALS: BP 158/69
[2023-04-10 14:49] VITALS: BP 143/60
--- NOTE | 2023-04-10 17:55 | NUR ---
DINNER CBG MADE A COPY OF THE LOW SLIDING SCALE FOR PT. PT DINNER CBG WAS 126. GAVE THE SCALE TO HIM AND HE WAS ABLE TO USE THE SCALE. GAVE HIM SEVERAL HYPATHETICAL CBG TO FIGURE OUT COVERAGE. HE WAS 100% ACCURATE. PT STATED," I WILL FORGET HOW TO DO THIS TOMORROW YOU KNOW." BROUGHT IN HIS INSULIN PEN. DEMONSTRATED USE. HE WAS ABLE TO FIGURE OUT COVERAGE AND DIAL THE PEN. WILL CONTINUE HAVING HIM PRACTICE TOMORROW. AGAIN PT STAED," MY MEMORY IS TERRIBLE. I KNOW I WON'T REMEMBER ANY OF THIS TOMORROW." CONTINUE POC.
[2023-04-10 19:32] VITALS: BP 150/64
[2023-04-11 03:55] VITALS: BP 164/69
[2023-04-11 06:13] LABS: BASOPHILS ABSOLUTE AUTO 0.08 K/mm3 (0.00-0.23); BASOPHILS PERCENT AUTO 1 % (0-2); EOSINOPHILS ABSOLUTE AUTO 0.24 K/mm3 (0.00-0.68); EOSINOPHILS PERCENT AUTO 4 % (0-6); Hematocrit 33.3 % (37.0-53.0); Hemoglobin 11.3 g/dL (13.5-17.5); IMMATURE GRAN ABSOLUTE AUTO 0.02 K/mm3 (0.00-0.10); IMMATURE GRAN PERCENT AUTO 0 % (0-1); LYMPHOCYTES ABSOLUTE AUTO 1.51 K/mm3 (0.84-5.20); LYMPHOCYTES PERCENT AUTO 25 % (21-46); MONOCYTES ABSOLUTE AUTO 0.86 K/mm3 (0.16-1.47); MONOCYTES PERCENT AUTO 14 % (4-13); Mean Corpuscular HGB Conc 33.9 g/dL (31.5-36.5); Mean Corpuscular Volume 85 fL (80-100); Mean Platelet Volume 11.9 fL (9.1-12.4); NEUTROPHILS ABSOLUTE AUTO 3.28 K/mm3 (1.96-9.15); NEUTROPHILS PERCENT AUTO 55 % (41-73); Platelet Count 280 K/mm3 (150-400); RDW Coefficient Variation 13.2 % (11.7-14.2); RDW Standard Deviation 41.1 fL (35.1-46.3); White Blood Cell Count 5.99 K/mm3 (4.00-11.30)
--- NOTE | 2023-04-11 06:43 | NUR ---
SUMMARY: PT A/O X2-3 BUT FORGETFULL AT TIMES TO DATE AND SPECIFICS OF PRIOR DAYS. HE STATES "MY MEMORY IS TERRIBLE" BUT HE'S ABLE TO CALL APPROPRIATELY AND SPECIFY NEEDS. PT UP INDEPENDENT IN ROOM AND SBA IN HALLS. NS INFUSES PER EMAR AND PT DENIED PAIN/ALL OTHER COMPLAINTS. HE REMAINS S.MEGAN-NSR ON TELEMETRY AND 50'S-60'S BPM. NO ACUTE CHANGES, VSS/AFEBRILE. WCTM AND REPORT TO DAY RN.
[2023-04-11 06:47] LABS: Bun/Creatinine Ratio 11.4 (12.0-20.0); Calcium, Blood 8.1 mg/dL (8.5-10.1); Creatinine, Blood 1.05 mg/dL (0.60-1.20); Potassium, Blood 3.6 mmol/L (3.5-5.5)
[2023-04-11 08:03] VITALS: BP 175/68
--- NOTE | 2023-04-11 09:15 | NUR ---
ATTEMPTED TO ASSESS PTS RETENTION OF INFORMATION AND EDUCATION THAT WAS GIVEN LAST NIGHT ABOUT GIVING HIMSELF INSULIN. STATED HE DIDN'T REMEMBER ANYTHING ABOUT GETTING EDUCATED ABOUT THAT LAST NIGHT. WAS ABLE TO FOLLOW STEPS WHEN PROMPTED BUT AFTER GIVING HUMOLOG TWICE (SS AND THEN BASAL RATE) AND VIKA PT WAS IRRADIC ABOUT WHAT HE REMEMBERED AND WHICH STEP WAS WHEN.
--- NOTE | 2023-04-11 10:30 | NUR ---
PTS EYES OPEN AND ATTEMPTED TO SPEAK BEYON YES/NO BUT UNABLE TO GET WORDS OUT. WHEN GIVING MEDS THIS MORNING STARTED WITH LIQUICEL ON A SPOON. AFTER THE FIRST DRINK PT REFUSED ANY FURTHER MEDS WITH NO AND BODY LANGUAGE-TURNING HEAD AWAY AND NOT OPENING MOUTH.
[2023-04-11 14:50] VITALS: BP 147/59
--- NOTE | 2023-04-11 18:24 | NUR ---
SHIFT SUMMARY PT INDEPENDENT IN ROOM. ALSO AMBULATED IN HALLWAY AND APPEARED STABLE ON HIS FEET. HAS BEEN ABLE TO RETURN TO ROOM OR CLOSE TO IT BUT THEN SAYS HE CAN'T REMEMBER WHERE HIS ROOM IS. HAS DENIED PAIN THROUGH THE DAY. NO FURTHER DIABETIC EDUCATION COMPLETED WITH REMAINING 2 MEALS DUE TO PTS FORGETFULNESS.
[2023-04-11 19:20] VITALS: BP 175/68
[2023-04-12 04:03] VITALS: BP 163/73
--- NOTE | 2023-04-12 04:26 | NUR ---
MANAGEMENT PLANNER SUMMARY NO ACUTE EVENTS THROUGHOUT THIS SHIFT. A&O TO SELF. PATIENT EFFECTIVELY COMMUNICATES NEEDS. RR EVEN AND UNLABORED ON RA. VSS. NS INFUSING @ 100ML/HR. NO PAIN REPORTED THIS SHIFT. PATIENT APPEARED TO SLEEP DURING THE NIGHT WITHOUT ANY CONCERNS. PATIENT ENCOURAGED TO CALL FOR ASSISTANCE RELATED TO MENDING CARRIER WITNESSING GAIT UNSTEADINESS. BED LOW AND LOCKED. CALL LIGHT WITHIN REACH. THIS RN WILL CONTINUE TO MONITOR.
[2023-04-12 05:51] LABS: Creatinine, Blood 0.91 mg/dL (0.60-1.20); Potassium, Blood 2.9 mmol/L (3.5-5.5); Thyroid Stimulating Hormone 1.56 uIU/mL (0.360-4.800)
[2023-04-12 07:34] VITALS: BP 165/69
[2023-04-12 16:14] VITALS: BP 184/90
--- NOTE | 2023-04-12 18:50 | NUR ---
SHIFT SUMMARY PT INDEPENDENT IN HALLWAY. IV FLUIDS COMPLETED AND TOOK A SHOWER THIS AFTERNOON. DR. NORMAN IN TO SEE PT AND RECOMMENDED GUARDIANSHIP.
[2023-04-12 19:58] VITALS: BP 158/77
--- NOTE | 2023-04-13 04:46 | NUR ---
PIPE SMOKING MACHINE OFFBEARER SUMMARY NO ACUTE EVENTS THIS SHIFT. A&OX SELF AND PLACE. PATIENT EFFECTIVELY COMMUNICATES NEEDS. VSS. RR EVEN AND UNLABORED ON RA. SPO2 >92%. PATIENT NOTED TO SLEEP THROUGHOUT THE NIGHT WITHOUT ANY ACUTE CONCERNS. BED LOW AND LOCKED. CALL LIGHT WITHIN REACH. THIS RN WILL CONTINUE TO MONITOR.
[2023-04-13 04:48] VITALS: BP 149/71
[2023-04-13 06:51] LABS: Bun/Creatinine Ratio 9.1 (12.0-20.0); Calcium, Blood 8.4 mg/dL (8.5-10.1); Creatinine, Blood 0.99 mg/dL (0.60-1.20); Potassium, Blood 3.4 mmol/L (3.5-5.5)
[2023-04-13 07:33] VITALS: BP 174/79
[2023-04-13 15:53] VITALS: BP 156/85
--- NOTE | 2023-04-13 16:48 | NUR ---
SHIFT SUMMARY PT A&OX2-3, PLEASENTLY CONFUSED T/O SHIFT-FORGETFUL. AMBULATES IND. IN [place]. GLUCOSE >200 T/O SHIFT-MEDICATING W/ SCHEDULED 7 UNITS. TOLERATING PO INTAKE WELL. CALL LIGHT W/IN REACH. ANA IN TO SEE PT THIS SHIFT. WORKED W/ PHYSICAL THERAPY THIS SHIFT.
[2023-04-13 20:00] VITALS: BP 150/95
[2023-04-14 04:24] VITALS: BP 150/72
[2023-04-14 08:16] VITALS: BP 147/66
--- NOTE | 2023-04-14 09:53 | NUR ---
PT RESTING QUIETLY IN BED, WAS UP TO THE CHAIR FOR BREAKFAST, PT HAS BEEN INDEPENDENT IN THE ROOM, PLEASANT AND COOPERATIVE WITH CARE
--- NOTE | 2023-04-14 14:37 | NUR ---
PT UP WALKING IN THE HALLS INDEPENDENTLY, PT OCC FORGETS WHERE HIS ROOM IS AND NEEDS ASSISTANCE BACK TO HIS ROOM, PLEASANT AND COOPERATIVE
--- NOTE | 2023-04-14 18:07 | NUR ---
SUMMARY PT SITTING UP IN THE CHAIR EATING DINNER, PT HAS BEEN PLEASANT AND COOPERATIVE WITH CARE, INDEPENDENT IN THE ROOM AND HALLWAY, FORGETFUL, EASY TO REORIENT AND REDIRECT, VSS, WILL CONT TO MONITOR
[2023-04-14 19:54] VITALS: BP 173/70
[2023-04-14 19:58] VITALS: BP 177/79
--- NOTE | 2023-04-14 22:50 | NUR ---
START OF SHIFT THIS PALAEONTOLOGIST ASSUMED CARE OF PT AT 1900 UNDER THE OBSERVATION OF NURSE KETAN MITCHELL. PATIENT ALERT AND ORIENTED TO SELF AND PLACE. LABS REVIEWED. VITAL SIGNS REVIEWED, B/P ELEVATED COREG GIVEN AT 1700. WILL MONITOR FOR S/S OF HIGH BP. REMAINING VITALS WNL. PATIENT REMAINS IN A POSITION OF SAFETY AND COMFORT WITH BED IN LOW POSITION, WHEELS LOCKED, ROOM FREE OF DEBRIS, NONSKID SOCKS IN PLACE, BED RAILS RAISED, AND CALL LIGHT WITHIN REACH. WILL CONTINUE TO MONITOR THROUGHOUT MY SHIFT.
[2023-04-15 03:46] VITALS: BP 136/65
--- NOTE | 2023-04-15 04:09 | NUR ---
SHIFT SUMMARY THIS STUDENT NURSE ADDRESSED THE PT'S CONFUSION THROUGH REDIRECTION NEEDED AND PERFORMING NEURO ASSESSMENTS NEEDED. PT AMBULATED INDEPENDEDNTLY DURING THE SHIFT TO THE BATHROOM. PT REMAINED ASLEEP MOST OF SHIFT. PT REMAINED FREE OF FALLS DURING THE SHIFT. PT'S BP DROPPED FROM 177/79 TO 136/65 SHOWING AN IMPROVEMENT. PTS REMAINING VITALS WNL. PT A&O TO SELF, PLACE, AND YEAR. PT KEPT IN A POSITION OF SAFETY AND COMFORT THROUGHOUT MY SHIFT. WILL CONTINUE TO MONITOR ON MY SHIFT.
--- NOTE | 2023-04-15 05:53 | NUR ---
CTA/STUDENT NOTE I HAVE READ THIS ELECTRIC RAZOR MECHANIC'S DOCUMENTATION AND I AGREE. SHIFT SUMMARY LOCATED UNDER ELECTRIC RAZOR MECHANIC'S NOTE
[2023-04-15 07:21] VITALS: BP 163/62
--- NOTE | 2023-04-15 09:00 | NUR ---
PT JOHN CHA A/O X 2-3. ABLE TO TELL ME ABOUT SERVICE IN [employer], LIVES [place], DOES NOT HAVE CATS OR DOGS. UNABLE TO GIVE ME DETAILS. DENIES PAIN. HR REG, NO MURMUR NOTED. NO TELE. NO EDEMA NOTED. LUNGS CLEAR, RESP EASY, UNLABORED. ON R.A. BT X4 LAST BM YEST PER PT. VOIDS INDEPENDANT TO BATHROOM. BED IN LOW POSITION, CALL LITE IN REACH, CALLS APPROP. PENDING GUARDIANSHIP
--- NOTE | 2023-04-15 10:20 | NUR ---
[address] CHA RE H/R AND BP HOLD COREG AND GIVE LISINOPRIL
[2023-04-15 11:18] VITALS: BP 151/71
[2023-04-15 14:55] VITALS: BP 147/72
--- NOTE | 2023-04-15 18:05 | NUR ---
DR NULLED 5 UNITS FOR DINNER, [place] [facility] [place] [facility]
[2023-04-15 19:21] VITALS: BP 140/73
--- NOTE | 2023-04-15 19:42 | NUR ---
PT PLEASANT TODAY. AMBULATED MCDONOUGH TODAY, ALSO TOOK SHOWER TODAY. STILL PENDING GUARDIANSHIP. CBG LOWER TONITE, SO SPOKE TO DR CHA ABOUT INSULIN. DROPPED IN HALF FOR DINNER DOSE. DISCUSSED B/P ELEVATED, DR REVIEWED MEDS. NO OTHER CONCERNS NOTED. BED IN LOW POSITOIN, CALL LITE IN REACH, CALLS APPROP
[2023-04-16 04:50] VITALS: BP 127/69
--- NOTE | 2023-04-16 05:24 | NUR ---
SHIFT SUMMARY PT ADMIT FOR ENCEPHELOPATHY AND CONFUSION. PT A&O X2/3 ADA DIET. AWAITING GUARDIANSHIP PLACEMENT. 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 PLEASANT AND COOPERATIVE.
[2023-04-16 06:07] LABS: Bun/Creatinine Ratio 11.5 (12.0-20.0); Calcium, Blood 8.5 mg/dL (8.5-10.1); Creatinine, Blood 1.04 mg/dL (0.60-1.20); Potassium, Blood 3.1 mmol/L (3.5-5.5)
[2023-04-16 07:47] VITALS: BP 162/76
[2023-04-16 11:11] VITALS: BP 139/67
[2023-04-16 15:38] VITALS: BP 176/76
--- NOTE | 2023-04-16 18:17 | NUR ---
PT PLEASANT TODAY. HAS AMBULATED HALLS WELL. HE HAS IMPROVED BP READINGS AND TOLERATING HIS CHANGED INSULIN DOSINGS. STATES IS GETTING A FEELING TO BEING BORED AND COUPED UP IN HERE. NO OTHER CONCERNS NOTED. BED IN LOW POSITION, CALL LITE IN REACH CALLS APPROP
[2023-04-16 19:25] VITALS: BP 121/52
--- NOTE | 2023-04-17 04:01 | NUR ---
ASSOCIATE PRODUCT MANAGER SUMMARY NO ACUTE EVENTS THIS SHIFT. A&OX4. PATIENT EFFECTIVELY COMMUNICATES NEEDS. VSS. RR EVEN AND UNLABORED ON RA. PATIENT REPORTED HAVING A HEADACHE AT SHIFT CHANGE, BUT DECLINED APAP. NO OTHER PAIN REPORTED THIS SHIFT. PATIENT NOTED TO SLEEP WELL THROUGHOUT THE NIGHT WITHOUT ANY ACUTE CONCERNS. BED LOW AND LOCKED. CALL LIGHT WITHIN REACH. THIS RN WILL CONTINUE TO MONITOR.
[2023-04-17 04:30] VITALS: BP 155/75
[2023-04-17 07:40] VITALS: BP 149/72
--- NOTE | 2023-04-17 11:49 | NUR ---
NURSE NOTE THIS RN HAS REVIEWED AND AGREED WITH STUDENT RN SHIFT ASSESSMENT AND DOCUMENTATION.
--- NOTE | 2023-04-17 15:51 | NUR ---
SHIFT SUMMARY PATIENT IS ALERT AND ORIENTED. PATIENT HAS A LOW CBG THIS MORNING. THIS RN GAVE JUICE AND SNACKS AND CBG [place]. PATIENT HAS HAD NO OTHER ACUTE EVENTS THIS SHIFT. VITAL SIGNS REVIEWED. PATIENT HAS BEEN IND IN ROOM AND HAS TAKEN OCCASIONAL WALKS AROUND FLOOR. PATIENT HAS COMPLAINED OF A HEADACHE. MEDICATED PER EMAR. PATIENT HAS NOT COMPLAINED OF SOB, NAUSEA, OR VOMITTING THIS SHIFT. BED IN LOCKED AND LOWEST POSITION. CALL LIGHT IN PLACE. WILL MONITOR UNTIL SHIFT CHANGE.
[2023-04-17 16:32] VITALS: BP 150/70
[2023-04-17 20:31] VITALS: BP 139/76
[2023-04-18 03:56] VITALS: BP 134/75
--- NOTE | 2023-04-18 04:08 | NUR ---
SLEEVE TAILOR SUMMARY NO ACUTE EVENTS THIS SHIFT. A&OX4. PATIENT EFFECTIVELY COMMUNCIATES NEEDS. VSS. RR EVEN AND UNLABORED ON RA. NO PAIN REPORTED TO THIS RN. PATIENT NOTED TO SLEEP WELL THROUGHOUT THE NIGHT. BED LOW AND LOCKED. CALL LIGHT WITHIN REACH. THIS RN WILL CONTINUE TO MONITOR.
[2023-04-18 05:41] LABS: Bun/Creatinine Ratio 8.9 (12.0-20.0); Calcium, Blood 8.4 mg/dL (8.5-10.1); Creatinine, Blood 1.01 mg/dL (0.60-1.20); Potassium, Blood 3.3 mmol/L (3.5-5.5)
[2023-04-18 08:39] VITALS: BP 118/75
--- NOTE | 2023-04-18 09:59 | NUR ---
GLUCOSE METER REMOVED OLD GLUCOSE SENSOR AND INSULIN SITE FROM ABD. NO REDNESS, SWELLING OR SKIN BREAK DOWN NOTED. CONTINUE POC.
[2023-04-18 15:35] VITALS: BP 159/74
[2023-04-18 19:13] VITALS: BP 147/61
--- NOTE | 2023-04-19 04:16 | NUR ---
SHIFT SUMMARY NO ACUTE CHANGES TO PT CONDITION. PT SLEPT MUCH OF THE NIGHT. PT PLEASANT AND COOPERATIVE.
[2023-04-19 06:01] VITALS: BP 131/50
[2023-04-19 07:43] VITALS: BP 141/74
[2023-04-19 15:41] VITALS: BP 164/63
--- NOTE | 2023-04-19 18:31 | NUR ---
INSULIN WORKED WITH PT TO ADMINISTER DINNER TIME 5 UNITS. HE WAS ABLE TO DEMONSTRATE NEEDLE. PRIMING AND ADJUSTING THE PEN FOR DOSEAGE. CONTINUE POC.
[2023-04-19 20:01] VITALS: BP 170/68
[2023-04-19 20:56] VITALS: BP 168/68
--- NOTE | 2023-04-19 21:38 | NUR ---
[facility] MED PASS - UNSUCCESSFUL PT. EDUCATION PATIENT REFUSED TO SELF-ADMINISTER INSULIN. PATIENT STATED, "I AM NOT GOING TO PLAY THAT [id number], I WILL NOT BE DOING THIS AT HOME." HE INSISTED THAT I ADMINISTER HIS INSULIN FOR HIM. HE WAS AGITATED AT ME.
[2023-04-20 04:30] VITALS: BP 136/72
--- NOTE | 2023-04-20 04:34 | NUR ---
SHIFT SUMMARY ADMITTED FOR METABOLIC ENCEPHALOPATHY. FULL CODE. PLAN IS FOR DC HOME. [facility] IS PSYCH CONSULT. HE IS A [facility] PATIENT. ON RA, INDEPENDENT, ADA DIET. ACHS CBG'S. INSULIN DEPENDENT DM2. HX OF ALZHEIMER'S DEMENTIA, SHORT-TERM MEMORY LOSS. NO FAMILY IS KNOWN.
[2023-04-20 07:33] VITALS: BP 150/77
[2023-04-20] MEDS ORDERED: BASAGLAR K100 UNIT/1 SC (10:30)
--- NOTE | 2023-04-20 11:11 | NUR ---
PATIENT BEING DISCHARGED TODAY, RIDE ARRANGED AT 2 PM, PATIENT AMBULATING IN HALLS, STEADY GAIT
--- NOTE | 2023-04-20 13:48 | NUR ---
Patient is sitting on a chair and alert. Patient expalins that he will d/c soon and that he is looking forward to being at home "where he belongs." I provide a blessing and a prayer and patient voices is gratitude. I will continue to remain available to pateint and family.
--- NOTE | 2023-04-20 13:53 | NUR ---
NO RECOLLECTION OF PREVIOUS ATTEMPTS TO EDUCATE ABOUT INSULIN AND SQ INJECTIONS, BUT STATED HE ALREADY KNOWS HOW TO DO IT
== END 2023-04-20 14:15 | disposition home health service (06) | DRG 56 ==
LOC: ER 07:32 → MEDS 07:33
PROVIDERS: Emergency Medicine; Internal Medicine; ADMIT Internal Medicine
PROC: 4A033R1 Measurement of Arterial Saturation, Peripheral, Percutaneous Approach (ICD-10-PCS; principal; 2023-04-02)
DX: G30.9 Alzheimer's disease, unspecified (principal); E10.10 Type 1 diabetes mellitus with ketoacidosis without coma; G92.8 Other toxic encephalopathy; F02.80 Dementia in other diseases classified elsewhere, unspecified severity, without behavioral disturbance, psychotic disturbance, mood disturbance, and anxiety; F41.1 Generalized anxiety disorder; I12.9 Hypertensive chronic kidney disease with stage 1 through stage 4 chronic kidney disease, or unspecified chronic kidney disease; N18.30 Chronic kidney disease, stage 3 unspecified; E03.9 Hypothyroidism, unspecified; F10.20 Alcohol dependence, uncomplicated; G45.4 Transient global amnesia; E87.6 Hypokalemia; I67.9 Cerebrovascular disease, unspecified; E10.42 Type 1 diabetes mellitus with diabetic polyneuropathy; E10.65 Type 1 diabetes mellitus with hyperglycemia; E10.22 Type 1 diabetes mellitus with diabetic chronic kidney disease; E78.00 Pure hypercholesterolemia, unspecified; J43.9 Emphysema, unspecified; F34.1 Dysthymic disorder; E10.649 Type 1 diabetes mellitus with hypoglycemia without coma; F19.11 Other psychoactive substance abuse, in remission; M54.16 Radiculopathy, lumbar region; E55.9 Vitamin D deficiency, unspecified; Z90.49 Acquired absence of other specified parts of digestive tract; Z79.899 Other long term (current) drug therapy; Z79.02 Long term (current) use of antithrombotics/antiplatelets; Z79.4 Long term (current) use of insulin; Z87.891 Personal history of nicotine dependence; Z96.41 Presence of insulin pump (external) (internal)
CPT/HCPCS: 36415; 36600; 70551; 80048; 80053; 80069; 82010; 82607; 82746; 82803; 82947; 83036; 83605; 83735; 83935; 84100; 84132; 84133; 84300; 84436; 84443; 85025; 85027; 94760; 96360; 96372; 97110-CQ; 97112; 97116; 97116-CQ; 97129; 97130; 97161; 97165; 99285-25; A9270; G0378; J1650; J1815; J3411; J3480; J7030; J7050; J7799

== ENCOUNTER 2023-10-04 13:30 | Emergency (ER) | payer OTHER ==
[~2023-10-04] VITALS: Ht 188 cm; Wt 97.5 kg
[~2023-10-04 13:30] MED LIST changes: +BASAGLAR K100 UNIT/1 SC; +METF500 PO
[2023-10-04 14:13] LABS: BASOPHILS ABSOLUTE AUTO 0.09 K/mm3 (0.00-0.23); BASOPHILS PERCENT AUTO 1 % (0-2); EOSINOPHILS ABSOLUTE AUTO 0.14 K/mm3 (0.00-0.68); EOSINOPHILS PERCENT AUTO 2 % (0-6); Hemoglobin 13.3 g/dL (13.5-17.5); IMMATURE GRAN ABSOLUTE AUTO 0.02 K/mm3 (0.00-0.10); IMMATURE GRAN PERCENT AUTO 0 % (0-1); LYMPHOCYTES ABSOLUTE AUTO 1.29 K/mm3 (0.84-5.20); LYMPHOCYTES PERCENT AUTO 15 % (21-46); MONOCYTES ABSOLUTE AUTO 0.99 K/mm3 (0.16-1.47); MONOCYTES PERCENT AUTO 11 % (4-13); Mean Corpuscular HGB 29.4 pg (26.0-34.0); Mean Corpuscular Volume 84 fL (80-100); Mean Platelet Volume 11.8 fL (9.1-12.4); NEUTROPHILS PERCENT AUTO 71 % (41-73); Platelet Count 255 K/mm3 (150-400); RDW Coefficient Variation 14.3 % (11.7-14.2); RDW Standard Deviation 43.9 fL (35.1-46.3); Red Blood Cell Count 4.52 M/mm3 (4.30-5.90); White Blood Cell Count 8.83 K/mm3 (4.00-11.30)
[2023-10-04 15:10] LABS: U Amphetamine Screen Not Detected; U Barbituate Screen Not Detected; U Benzodiazapine Screen Not Detected; U Buprenorphine Screen Not Detected; U Cannabinoids Screen DETECTED; U Cocaine Screen Not Detected; U Methadone Screen Not Detected; U Methamphetamine Screen Not Detected; U Opiates Screen Not Detected; U Oxycodone Screen Not Detected; U Phencyclidine Screen Not Detected
[2023-10-04 15:54] LABS: Albumin, Blood 4.1 g/dL (3.4-5.0); Albumin/Globulin Ratio 1.2 (0.8-1.8); Bilirubin, Total 1.4 mg/dL (0.1-1.0); Bun/Creatinine Ratio 15.3 (12.0-20.0); Calcium, Blood 8.6 mg/dL (8.5-10.1); Creatinine, Blood 1.24 mg/dL (0.60-1.20); Globulin, Blood 3.3 g/dL (2.2-4.0); Potassium, Blood 3.5 mmol/L (3.5-5.5); Total Protein, Blood 7.4 g/dL (6.4-8.2)
[2023-10-04 16:50] VITALS: BP 152/71
== END 2023-10-04 17:03 | disposition home or self-care (01) ==
LOC: ER 13:30
PROVIDERS: Emergency Medicine; Student in an Organized Health Care Education/Training Program
DX: R41.0 Disorientation, unspecified (principal); F12.90 Cannabis use, unspecified, uncomplicated; I10 Essential (primary) hypertension; E11.40 Type 2 diabetes mellitus with diabetic neuropathy, unspecified; Z79.4 Long term (current) use of insulin; Z79.84 Long term (current) use of oral hypoglycemic drugs
CPT/HCPCS: 70450; 80053; 82947; 85025; 93005; 93010; 99285-25

== ENCOUNTER 2023-10-05 23:54 | Emergency (ER) | payer OTHER ==
[~2023-10-05] VITALS: Ht 188 cm; Wt 108.9 kg
[2023-10-06 00:57] LABS: BASOPHILS ABSOLUTE AUTO 0.09 K/mm3 (0.00-0.23); BASOPHILS PERCENT AUTO 1 % (0-2); EOSINOPHILS ABSOLUTE AUTO 0.28 K/mm3 (0.00-0.68); EOSINOPHILS PERCENT AUTO 4 % (0-6); Hematocrit 37.2 % (37.0-53.0); IMMATURE GRAN ABSOLUTE AUTO 0.02 K/mm3 (0.00-0.10); IMMATURE GRAN PERCENT AUTO 0 % (0-1); LYMPHOCYTES ABSOLUTE AUTO 1.81 K/mm3 (0.84-5.20); LYMPHOCYTES PERCENT AUTO 25 % (21-46); MONOCYTES ABSOLUTE AUTO 0.93 K/mm3 (0.16-1.47); MONOCYTES PERCENT AUTO 13 % (4-13); Mean Corpuscular HGB 29.3 pg (26.0-34.0); Mean Corpuscular HGB Conc 34.9 g/dL (31.5-36.5); Mean Corpuscular Volume 84 fL (80-100); Mean Platelet Volume 11.9 fL (9.1-12.4); NEUTROPHILS ABSOLUTE AUTO 4.07 K/mm3 (1.96-9.15); NEUTROPHILS PERCENT AUTO 57 % (41-73); Platelet Count 244 K/mm3 (150-400); RDW Coefficient Variation 14.2 % (11.7-14.2); RDW Standard Deviation 43.6 fL (35.1-46.3); Red Blood Cell Count 4.44 M/mm3 (4.30-5.90)
[2023-10-06 01:09] LABS: Ethanol (Alcohol), Blood, Med <3 mg/dL
[2023-10-06 01:10] LABS: Alanine Aminotransfer (ALT/SGP 33 U/L (12-78); Albumin/Globulin Ratio 1.1 (0.8-1.8); Alk Phos 78 U/L (50-136); Anion Gap 6 mmol/L (6-16); Aspartate Aminotrans (AST/SGOT 21 U/L (12-37); Blood Urea Nitrogen 19 mg/dL (8-24); Bun/Creatinine Ratio 14.5 (12.0-20.0); CO2, Blood 21 mmol/L (21-32); Calcium, Blood 8.5 mg/dL (8.5-10.1); Chloride, Blood 113 mmol/L (98-108); Creatinine, Blood 1.31 mg/dL (0.60-1.20); Globulin, Blood 3.5 g/dL (2.2-4.0); Glomerular Filtration Rate 60 (60-); Glucose, Blood 113 mg/dL (70-99); Potassium, Blood 3.4 mmol/L (3.5-5.5); Sodium, Blood 140 mmol/L (136-145); Total Protein, Blood 7.5 g/dL (6.4-8.2)
[2023-10-06 06:27] VITALS: BP 167/85
== END 2023-10-06 06:33 | disposition home or self-care (01) ==
LOC: ER 23:54
PROVIDERS: Emergency Medicine
DX: F41.9 Anxiety disorder, unspecified (principal); Z79.899 Other long term (current) drug therapy; Z79.4 Long term (current) use of insulin; E11.9 Type 2 diabetes mellitus without complications; Z87.891 Personal history of nicotine dependence
CPT/HCPCS: 80053; 82947; 85025; 93005; 93010; 99284